=== PATIENT | male | born 2000 | race African-American/Black ===

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

== ENCOUNTER 2022-08-13 16:48 | Emergency (ER) | payer OTHER ==
[2022-08-13 16:53] VITALS: BP 136/79; PULSE 69; RESP 18; TEMP 97.8; BMI 34.2
[2022-08-13] MEDS ORDERED: KETOROLAC TROMETHAMINE 30 MG/1 ML VIAL ONE (17:29)
[2022-08-13] MEDS ORDERED: LIDOCAINE 5% TOPICAL PATCH ONE (17:30)
[2022-08-13] MEDS ORDERED: LIDOCAINE 5% TOPICAL PATCH TP ONE (17:30)
[2022-08-13] MEDS ORDERED: KETOROLAC TROMETHAMINE 60 MG/2 ML VIAL IM ONE (17:30)
== END 2022-08-13 17:42 | disposition home or self-care (01) ==
LOC: JER 16:48
PROC: 3E023GC Introduction of Other Therapeutic Substance into Muscle, Percutaneous Approach (ICD-10-PCS; principal; 2022-08-13)
DX: M54.50 Low back pain, unspecified (principal)
CPT/HCPCS: 99284-25